=== PATIENT | male | born 1965 | race Two or more races ===

== ENCOUNTER 2020-02-04 13:32 | Emergency (ER) | payer BC ==
[~2020-02-04] VITALS: Ht 185.4 cm; Wt 93.1 kg
--- NOTE | 2020-02-04 15:37 | NUR ---
Fiona ONTIVEROS CHANGE OF ADDRESS CLERK AND DR VALIENTE AT BEDSIDE TO [facility] PT
[2020-02-04 16:09] LABS: BASOPHILS # (AUTO) 0.1 X10'3 (0-0.2); BASOPHILS % (AUTO) 0.6 % (0-1); EOSINOPHILS # (AUTO) 0.2 X10'3 (0-0.9); EOSINOPHILS % (AUTO) 1.6 % (0-6); HEMATOCRIT 45.4 % (42.0-52.0); HEMOGLOBIN 15.2 g/dl (14.0-17.9); LYMPHOCYTES # (AUTO) 2.6 X10'3 (1.1-4.8); LYMPHOCYTES % (AUTO) 27.8 % (21-51); MEAN CORPUSCULAR HEMOGLOBIN 30.7 PG (27.0-31.0); MEAN CORPUSCULAR HGB CONC 33.5 g/dL (33.0-36.5); MEAN CORPUSCULAR VOLUME 91.6 FL (78-98); MEAN PLATELET VOLUME 7.2 FL (7.4-10.4); MONOCYTES # (AUTO) 0.7 X10'3 (0-0.9); MONOCYTES % (AUTO) 7.6 % (2-12); NEUTROPHILS # (AUTO) 5.7 X10'3 (1.8-7.7); NEUTROPHILS % (AUTO) 62.4 % (42-75); PLATELET COUNT 251 X10'3 (140-440); RED BLOOD COUNT 4.96 X10'6 (4.70-6.10); RED CELL DISTRIBUTION WIDTH 13.9 % (11.5-14.5); WHITE BLOOD COUNT 9.2 X10'3 (4.5-11.0)
[2020-02-04 16:25] LABS: ALANINE AMINOTRANSFERASE 35 U/L (12-78); ALKALINE PHOSPHATASE 108 IU/L (46-116); ANION GAP 5 (8-16); ASPARTATE AMINO TRANSFERASE 23 U/L (10-37); BILIRUBIN,TOTAL 0.6 MG/DL (0.1-1.0); BLOOD UREA NITROGEN 18 MG/DL (7-18); CALCIUM 8.8 MG/DL (8.5-10.1); CHLORIDE 105 MMOL/L (99-107); GLUCOSE 94 MG/DL (70-104); POTASSIUM 3.8 MMOL/L (3.5-5.1); SODIUM 139 MMOL/L (135-145); TOTAL CARBON DIOXIDE 28.8 MMOL/L (24-32); eGFR 78 ML/MIN
[2020-02-04] MEDS ORDERED: iohexol 300mg/ml 100ml inj. ONE (16:37)
--- NOTE | 2020-02-04 16:51 | NUR ---
EXHIBIT DESIGNER AWARE PT IS READY FOR CT
--- NOTE | 2020-02-04 17:11 | NUR ---
PT BACK FROM CT
[2020-02-04 17:43] VITALS: BP 128/86
[2020-02-04] MEDS ORDERED: CLIN150C8 PO (17:47)
== END 2020-02-04 18:06 | disposition home or self-care (01) ==
LOC: ER 13:33
DX: R59.1 Generalized enlarged lymph nodes (principal); M54.2 Cervicalgia; F17.200 Nicotine dependence, unspecified, uncomplicated; Z88.1 Allergy status to other antibiotic agents; Z79.899 Other long term (current) drug therapy
CPT/HCPCS: 36415; 70491; 80053; 85025; 99285; Q9967